=== PATIENT | female | born 1985 | race Caucasian/White ===

== ENCOUNTER 2016-09-18 13:40 | Emergency (ER) | payer OTHER ==
[~2016-09-18 13:40] MED LIST: ALBUTEROL17 G1 PO; ALBUTEROL17 GM; ALBUTEROL17 GM INH; ALDOMET250 MG PO; AMOXICILLIN PO; AMOXICILLIN500 M1 PO; COMBIVENT INH14.7 GM INH; DICLOFENAC PO; DOXYCYCLINE PO; DUONEB 2.5-0.5 M3 ML NEB; IBUPROFEN IN40 MG/ML PO; KETOPROFEN PO; LEVAQUIN PO; METHADONE H5 MG/5 ML; METHADONE H5 MG/5 ML PO; METHADONE HCL10 MG PO; METHADONE PO; METHADONE10 MG/5 ML PO; METHADOSE PO; MOTRIN600 M2 DOB; PEN-VEE K PO; PENICILLIN; PHENERGAN W/CO120 ML PO; PREDNISONE PO; PROCARDIA10 MG PO; PROMETHAZINE HC25 MG PO; PV NEURO VITE T1 TAB PO; QVAR7.3 GM INH; SYMBICORT; TAMIFLU75 MG PO; TRIAMCINOLONE AC1 GM EXT; ULTRAM PO; VIBRAMYCIN100 M1 PO; VITAMIN B122500 MCG; ZITHROMAX PO
[2016-09-18] MEDS ORDERED: ZYRTEC (13:43)
[2016-09-18] MEDS ORDERED: SINGULAIR (13:43)
== END 2016-09-18 14:28 | disposition home or self-care (01) ==
LOC: SED 13:40
DX: K04.7 Periapical abscess without sinus (principal); K02.9 Dental caries, unspecified; J44.9 Chronic obstructive pulmonary disease, unspecified; F17.210 Nicotine dependence, cigarettes, uncomplicated
CPT/HCPCS: 99282